=== PATIENT | female | born 1975 | race African-American/Black ===

== ENCOUNTER 2019-11-15 15:16 | Emergency (ER) | payer OTHER ==
[~2019-11-15] VITALS: Ht 157.5 cm; Wt 68.0 kg
[2019-11-15 15:49] LABS: URINE BILIRUBIN NEGATIVE (Negative); URINE BLOOD TRACE (Negative); URINE CLARITY CLEAR; URINE COLOR YELLOW; URINE GLUCOSE-RANDOM TRACE (Negative); URINE KETONES NEGATIVE (Negative); URINE LEUKOCYTES-REFLEX NEGATIVE (Negative); URINE PROTEIN 2+ (Negative); URINE SPECIFIC GRAVITY 1.015 (1.005-1.030); URINE UROBILINOGEN 0.2 E.U./dl (0.2-1.0)
[2019-11-15 15:50] LABS: ABSOLUTE BASOPHILS 0.2 thou/uL (0.0-0.2); ABSOLUTE LYMPHOCYTES 1.6 thou/uL (0.8-5.3); ABSOLUTE MONOCYTES 0.6 thou/uL (0.0-1.2); ABSOLUTE NEUTROPHILS 5.2 thou/uL (1.6-8.1); BASOPHILS 2.2 %; EOSINOPHILS 0.4 %; HEMATOCRIT 38.3 % (37.0-47.0); HEMOGLOBIN 13.3 gm/dL (12.0-15.0); LYMPHOCYTES 21.5 %; MCH 32.1 pg (26.0-34.0); MCHC 34.8 g/dL (28.0-37.0); MCV 92.3 fL (80.0-100.0); MONOCYTES 7.7 %; MPV 8.5 fl. (7.2-11.1); NUCLEATED RBCS 0 /100WBC; PLATELET COUNT* 313 thou/uL (150-400); POLYS 68.2 %; RBC 4.15 mil/uL (4.20-5.00); RDW-CV 13.6 % (10.5-14.5); WBC 7.6 thou/uL (4.0-11.0)
[2019-11-15 15:51] LABS: URINE NITRITE-REFLEX POSITIVE (Negative)
[2019-11-15 15:56] LABS: SQUAMOUS >10 Many /LPF (0-3)
[2019-11-15 15:57] LABS: AMP/METHAMP Negative (Negative); BARBITURATES Negative (Negative); BENZODIAZEPINES Negative (Negative); COCAINE Negative (Negative); METHADONE Negative (Negative); OPIATES Negative (Negative); PCP Negative (Negative); THC Negative (Negative)
[2019-11-15 15:59] LABS: BACTERIA-REFLEX >30 Many /HPF (None Seen); CASTS None Seen /LPF (None Seen); CRYSTALS None Seen /LPF (None Seen); MUCUS None Seen strn/LPF (None Seen); URINE RBC 3-10 Few /HPF (0-2); URINE WBC-REFLEX 0-5 Rare /HPF (0-5)
[2019-11-15 16:06] LABS: CALCIUM 8.5 mg/dL (8.5-10.1); CREATININE 1.1 mg/dL (0.6-1.3)
[2019-11-15 16:09] LABS: POTASSIUM 2.9 mmol/L (3.5-5.1)
[2019-11-15 16:10] LABS: ALBUMIN 4.2 g/dL (3.4-5.0); TOTAL BILIRUBIN 0.3 mg/dL (<0.1-1.0); TOTAL PROTEIN 8.4 g/dL (6.4-8.2)
[2019-11-15] MEDS ORDERED: CIPROFLOXACIN500 M1 PO (16:22)
[2019-11-15] MEDS ORDERED: LISINOPRIL-HCT1 EAC1 PO (16:40)
[2019-11-15 17:02] VITALS: BP 189/128
[2019-11-16] MEDS ORDERED: LISINOPRIL-HCT1 EAC1 PO (23:28)
[2019-11-16] MEDS ORDERED: AMOXICILLIN 50500 MG PO (23:35)
== END 2019-11-15 17:04 | disposition home or self-care (01) ==
LOC: M.ERS 15:16
PROVIDERS: Personal Emergency Response Attendant
DX: S00.83XA Contusion of other part of head, initial encounter (principal); N39.0 Urinary tract infection, site not specified; F10.129 Alcohol abuse with intoxication, unspecified; Y90.8 Blood alcohol level of 240 mg/100 ml or more; R55 Syncope and collapse; Z88.6 Allergy status to analgesic agent; Y08.89XA Assault by other specified means, initial encounter; Y93.89 Activity, other specified; Y92.89 Other specified places as the place of occurrence of the external cause; Y99.8 Other external cause status

== ENCOUNTER 2019-11-16 20:31 | Emergency (ER) | payer OTHER ==
[~2019-11-16] VITALS: Ht 160 cm; Wt 68.0 kg
[~2019-11-16 20:31] MED LIST: CIPROFLOXACIN500 M1 PO; LISINOPRIL-HCT1 EAC1 PO
[2019-11-16] MEDS ORDERED: LISINOPRIL-HCT1 EAC1 PO (23:28)
[2019-11-16] MEDS ORDERED: AMOXICILLIN 50500 MG PO (23:35)
[2019-11-16 23:50] VITALS: BP 194/111
== END 2019-11-16 23:50 | disposition home or self-care (01) ==
LOC: M.ERS 20:31
DX: S02.2XXA Fracture of nasal bones, initial encounter for closed fracture (principal); S09.93XA Unspecified injury of face, initial encounter; Z76.0 Encounter for issue of repeat prescription; I10 Essential (primary) hypertension; Z88.6 Allergy status to analgesic agent; Y08.89XA Assault by other specified means, initial encounter; Y93.89 Activity, other specified; Y92.89 Other specified places as the place of occurrence of the external cause; Y99.8 Other external cause status